=== PATIENT | male | born 2000 | race African-American/Black ===

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

== ENCOUNTER 2021-03-21 16:47 | Emergency (ER) | payer OTHER, SELFPAY ==
[2021-03-21 17:32] VITALS: BP 120/88; PULSE 82; RESP 16; TEMP 37.4; O2SAT 100
--- NOTE | 2021-03-21 18:18 | ED.ABDPAIN ---
HPI - Abdominal Pain General Chief Complaint: Abdominal Pain Stated Complaint: Stomach pain in lower right side and lower back. Time Seen by Provider: 03/21/21 18:18 Source: patient Mode of arrival: ambulatory Limitations: no limitations History of Present Illness HPI narrative: Zheng Esquivel is a 20 yo male with no PMH who comes with right lower quadrant pain and back pain for the last 10 days that is worse when he walks around especially at work when he is doing activities. He states that is been present fairly consistently, no fever, no nausea vomiting diarrhea, had normal bowel movement today Denies any chance of STD Related Data Allergies Allergy/AdvReac Type Severity Reaction Status Date / Time No Known Allergies Allergy Verified 09/19/20 18:04 Review of Systems Review of Systems: CONSTITUTIONAL: Denies fever, chills, sweats. EYES: Denies visual changes, redness, discharge. ENT: Denies rhinorrhea, congestion, sore throat, otalgia. CARDIOVASCULAR: Denies chest pain, palpitations, edema. RESPIRATORY: Denies dyspnea, wheezing, cough GASTROINTESTINAL: Has abdominal pain, no nausea, vomiting, diarrhea. GENITOURINARY: Denies dysuria, hematuria, abnormal discharge SKIN: Denies rash or itching. NEUROLOGIC: Denies numbness, or focal weakness. PSYCHIATRIC: Denies anxiety or depression. [facility] Past Medical History Medical History Patient denies significant medical history Surgical History Surgical History No significant past surgical history Family History Family History Father Alive and well Mother Alive and well Social History Social History Smoking status: Never smoker Tobacco type: cigarettes Second hand tobacco smoke exposure: No Alcohol intake: never Substance use: never Substance use type: does not use Gender identity (if verbalized by the patient): Male Sexual Orientation (if Verbalized by the Patient): Straight or Heterosexual Spiritual care concerns: No Comments At time of signature, I agree with nursing past medical, surgical, social and family history. There is no relevant family history pertinent to the presenting complaint. Exam Narrative: GENERAL: This is a well-nourished, well-developed patient, in moderate distress. HEAD: normocephalic, atraumatic. EYES: . Sclera clear/white. Vision is grossly intact. EARS: External ears normal, . Hearing grossly intact. NOSE: External nose normal without nasal discharge, nares without redness, no rhinorrhea. THROAT: Mucous membranes moist, NECK: Neck supple, non-tender CARDIOVASCULAR: Regular rate and rhythm without murmurs, gallops, or rubs. RESPIRATORY: Clear to auscultation. Breath sounds equal bilaterally. No wheezes, rales, or rhonchi. GASTROINTESTINAL: Abdomen soft, mild lower right-sided tenderness with no rebound- SKIN: warm, intact with no suspicious lesions or rash, good texture and turgor. NEURO: awake, alert, and oriented to person, place and time. There were no obvious focal neurologic abnormalities. Steady gait EXTREMITIES: Normal range of motion. BACK: Nontender without deformity right CVA tenderness Course Course Emergency Course: Patient comes with right lower quadrant pain and almost CVA back pain denies any STD or nausea vomiting diarrhea has had pain for the last 7 to 10 days UA done-2+ blood in urine Started on cephalexin over recommend a follow-up with a primary care physician if worsens or develops fever to go to the ER Vital Signs Vital signs: Vital Signs Temperature 99.4 F 03/21/21 17:32 Pulse Rate 82 03/21/21 17:32 Respiratory Rate 16 03/21/21 17:32 Blood Pressure 120/88 03/21/21 17:32 Pulse Oximetry 100 03/21/21 17:32 Temperature 99.4 F 03/21/21 17:32 Pulse R
--- NOTE | 2021-03-21 18:31 | PC.NURSE ---
1821 was in [place] to collect ua spec.
== END 2021-03-21 19:02 | disposition home or self-care (01) ==
PROVIDERS: Emergency Provider Nurse Practitioner
DX: R10.9 Unspecified abdominal pain (principal); R31.29 Other microscopic hematuria
CPT/HCPCS: 81003; 99213; G0463

== ENCOUNTER 2021-07-15 15:17 | Emergency (ER) | payer OTHER, SELFPAY ==
--- NOTE | ~2021-07-15 | XR_ITS ---
EXAMINATION: XR abdomen/kub 1V DATE: 07/15/2021 15:55 INDICATION: Right flank pain. TECHNIQUE: A supine view of the abdomen was obtained. COMPARISON: None. FINDINGS: There are no dilated loops of bowel. There is a moderate volume of stool in the colon. Ther e is a 3 mm calcification overlying right kidney. IMPRESSION: 1. Nonobstructive bowel gas pattern. 2. 3 mm calcification overlying right kidney that may be a kidney stone. Reviewed, dictated and finalized at location B.
[2021-07-15 15:19] VITALS: BP 133/69; PULSE 91; RESP 16; TEMP 36.3; O2SAT 100
--- NOTE | 2021-07-15 15:44 | ED.BACK ---
HPI - Back Pain/Injury General Chief Complaint: Back Pain/Injury Stated Complaint: Right kidney pain Time Seen by Provider: 07/15/21 15:19 Source: patient Mode of arrival: ambulatory Limitations: no limitations History of Present Illness HPI Narrative: -year-old male presents with complaint of intermittent right flank pain for 2 to 3 months. Just saw his PCP regarding this complaint 1 week ago and was given Flomax. States that no imaging was done but he was supposed to be contacted regarding an outpatient ultrasound or CT scan. Pain is not any worse today but he is getting concerned if this is really a kidney stone or another issue. He has no pain with urination, no frequency or urgency. Afebrile. He is sitting comfortably on exam table. All systems reviewed and negative except as noted above. Related Data Home Medications Medication Instructions Recorded Confirmed tamsulosin mg PO 07/15/21 Allergies Allergy/AdvReac Type Severity Reaction Status Date / Time No Known Allergies Allergy Verified 09/19/20 18:04 Review of Systems Review of Systems: CONSTITUTIONAL: Denies fever, chills, or sweats. EYES: Denies visual changes, redness, or discharge. ENT: Denies rhinorrhea, congestion, sore throat, or otalgia. CARDIOVASCULAR: Denies chest pain, palpitations, or edema. RESPIRATORY: Denies cough or dyspnea. GASTROINTESTINAL: Denies abdominal pain, nausea, vomiting, or diarrhea. GENITOURINARY: Denies dysuria or hematuria. Reports right flank pain. SKIN: Denies rash or itching. MUSCULOSKELETAL: Denies back pain, joint pain, or myalgia. NEUROLOGIC: Denies headache, numbness, or weakness. PSYCHIATRIC: Denies anxiety or depression. All other systems reviewed are negative, except as documented in HPI. [facility] Past Medical History Medical History Patient denies significant medical history Surgical History Surgical History No significant past surgical history Family History Family History Father Alive and well Mother Alive and well Social History Social History Smoking status: Never smoker Tobacco type: cigarettes Second hand tobacco smoke exposure: No Alcohol intake: never Substance use: never Substance use type: does not use Gender identity (if verbalized by the patient): Male Sexual Orientation (if Verbalized by the Patient): Straight or Heterosexual Spiritual care concerns: No Comments At time of signature, agree with nursing past medical, surgical, social and family history. There is no relevant family history pertinent to the presenting complaint. Exam Narrative: GENERAL: This is a well-nourished, well-developed patient, in no apparent distress. HEAD: normocephalic, atraumatic. EYES: PERRL. Sclera clear/white. Vision is grossly intact. EARS: External ears normal NOSE: External nose normal NECK: Neck supple, non-tender without lymphadenopathy, masses or thyromegaly. CARDIOVASCULAR: Regular rate and rhythm without murmurs, gallops, or rubs. RESPIRATORY: Clear to auscultation. Breath sounds equal bilaterally. No wheezes, rales, or rhonchi. GASTROINTESTINAL: Abdomen soft, non-tender, nondistended. Bowel sounds are active. No hepato-splenomegaly, or palpable masses. No guarding. SKIN: warm, Dry, intact with no suspicious lesions or rash, good texture and turgor. NEURO: awake, alert, and oriented to person, place and time. There were no obvious focal neurologic abnormalities. EXTREMITIES: Normal range of motion to all extremities. BACK: Nontender without deformity. No CVA tenderness. Course Course Level of Care: Express Care Visit Vital Signs Vital signs: Vital Signs Temperature 36.3 C L 07/15/21 15:19 Pulse Rate 91 07/15/21 15:19 Respiratory Rate 16 07/15/21
== END 2021-07-15 16:21 | disposition home or self-care (01) ==
PROVIDERS: Emergency Provider Nurse Practitioner Family
DX: N20.0 Calculus of kidney (principal)
CPT/HCPCS: 74018; 81003; 99213; G0463

== ENCOUNTER 2022-08-04 19:43 | Emergency (ER) | payer OTHER, SELFPAY ==
[2022-08-04 19:53] VITALS: BP 135/57; PULSE 77; RESP 16; TEMP 37.4; O2SAT 100
--- NOTE | 2022-08-04 20:04 | ED.SKABFB ---
HPI - Skin/Abscess/Foreign Bdy General Chief complaint: Skin/Abscess/Foreign Body Stated complaint: Abscess on right thigh Time Seen by Provider: 08/04/22 20:00 Source: patient and RN notes reviewed Mode of arrival: ambulatory Limitations: no limitations History of Present Illness HPI narrative: Patient presents today complaining of a bump to his right lateral thigh that he noticed this morning. Unsure if it has been worsening throughout the day. Reports pain only if he pushes down hard on it. Denies itching. He has tried no [id number] interventions prior to arrival. Related Data Allergies Allergy/AdvReac Type Severity Reaction Status Date / Time No Known Allergies Allergy Verified 09/19/20 18:04 Review of Systems Review of Systems: CONSTITUTIONAL: Denies body aches, fever, chills, or sweats. EYES: Denies visual changes, redness, or discharge. ENT: Denies rhinorrhea, congestion, sore throat, or otalgia. CARDIOVASCULAR: Denies chest pain, palpitations, or edema. RESPIRATORY: Denies cough or dyspnea. GASTROINTESTINAL: Denies abdominal pain, nausea, vomiting, or diarrhea. GENITOURINARY: Denies dysuria or hematuria. SKIN: + bump to right lateral thigh MUSCULOSKELETAL: Denies back pain, joint pain, or myalgia. NEUROLOGIC: Denies headache, numbness, tingling, or weakness. PSYCH: Denies depression or anxiety. [facility] Past Medical History Medical History Patient denies significant medical history Surgical History Surgical History No significant past surgical history Family History Family History Father Alive and well Mother Alive and well Social History Social History Smoking status: Never smoker Tobacco type: cigarettes Second hand tobacco smoke exposure: No Alcohol intake: never Substance use: never Substance use type: does not use Living arrangements: with family Occupation/Education: student Gender identity (if verbalized by the patient): Male Sexual Orientation (if Verbalized by the Patient): Straight or Heterosexual Spiritual care concerns: No Comments At time of signature, I have reviewed and agree with nursing past medical, surgical, social and family history unless otherwise noted. Please see nursing chart for further information. There is no relevant family history pertinent to the presenting complaint Exam Narrative: GENERAL: Well-appearing, well-nourished, and in no acute distress. HEAD: Normocephalic, atraumatic. EYES: EOMI. No redness or drainage. Conjunctivae normal. ENT: Mucous membranes pink and moist. NECK: Normal AROM. CHEST: No respiratory distress. EXTREMITIES: Normal range of motion. No edema. SKIN: Warm, dry, no rash. Capillary refill normal. Normal skin turgor. 3 x 2 cm area of erythema and firmness to the right lateral thigh with tiny scab in the center. No fluctuance or tenderness with palpation. No red streaking. No drainage. Consistent with insect bite. NEURO: No focal deficits. Alert and oriented x3. Gait steady. PSYCH: Normal affect. No signs of depression or anxiety. Course Course Level of Care: Express Care Visit Vital Signs Vital signs: Vital Signs Temperature 99.4 F 08/04/22 19:53 Pulse Rate 77 08/04/22 19:53 Respiratory Rate 16 08/04/22 19:53 Blood Pressure 135/57 L 08/04/22 19:53 Pulse Oximetry 100 08/04/22 19:53 Oxygen Delivery Room Air 08/04/22 19:53 Temperature 99.4 F 08/04/22 19:53 Pulse Rate 77 08/04/22 19:53 Respiratory Rate 16 08/04/22 19:53 Blood Pressure 135/57 L 08/04/22 19:53 Pulse Oximetry 100 08/04/22 19:53 Oxygen Delivery Room Air 08/04/22 19:53 Reviewed. Pt has been instructed to follow up with his PCP regarding hi
== END 2022-08-04 20:11 | disposition home or self-care (01) ==
PROVIDERS: Emergency Provider Nurse Practitioner
DX: S70.361A Insect bite (nonvenomous), right thigh, initial encounter (principal); W57.XXXA Bitten or stung by nonvenomous insect and other nonvenomous arthropods, initial encounter
CPT/HCPCS: 99213; G0463

== ENCOUNTER 2023-04-01 14:07 | Emergency (ER) | payer OTHER, SELFPAY ==
--- NOTE | ~2023-04-01 | XR_ITS ---
EXAMINATION: XR chest 2V DATE: 04/01/2023 14:54 INDICATION: Abnormal lung sounds TECHNIQUE: Frontal and lateral views of the chest are obtained COMPARISON: None available FINDINGS: The lungs are free of acute opacities. No pleural effusion or pneumothorax. The cardiomedia stinal silhouette is normal. The visualized bones and soft tissues are unremarkable. IMPRESSION: 1. No acute cardiopulmonary abnormality. Reviewed, dictated and finalized at location F. N[employer] DEVELOPMENT [employer]OCIATE
--- NOTE | 2023-04-01 14:19 | ED.URI ---
HPI - URI/Sore Throat General Chief Complaint: Upper Respiratory Infection Stated Complaint: Sinus/Sore Throat Time Seen by Provider: 04/01/23 14:43 Source: patient and RN notes reviewed Mode of arrival: ambulatory Limitations: no limitations History of Present Illness HPI Narrative: 22-year-old male presents with concern for 3-4 day history of sore throat, sinus congestion, painful cough with upper chest congestion. Reports he got a fever this morning. He reports he has been taking Mucinex. Reports he has a productive cough. MD elicited complaint: cough and sore throat Related Data Allergies Allergy/AdvReac Type Severity Reaction Status Date / Time No Known Allergies Allergy Verified 04/01/23 14:27 Review of Systems Review of Systems: CONSTITUTIONAL: Reports malaise. Chills, sweats, or fever. EYES: Denies visual changes, redness, or discharge. ENT: Reports rhinorrhea, congestion, and sore throat. CARDIOVASCULAR: Denies chest pain, palpitations, or edema. RESPIRATORY: Reports productive painful cough. Denies dyspnea. GASTROINTESTINAL: Denies abdominal pain, nausea, vomiting, diarrhea SKIN: Denies rash or itching. MUSCULOSKELETAL: Denies myalgia. NEUROLOGIC: Reports headache. All systems reviewed & are unremarkable except as noted in HPI and below PMFSH Past Medical History Medical History Patient denies significant medical history Surgical History Surgical History No significant past surgical history Family History Family History Father Alive and well Mother Alive and well Social History Social History Smoking status: Never smoker Tobacco type: cigarettes Second hand tobacco smoke exposure: No Alcohol intake: never Substance use: never Substance use type: does not use Living arrangements: with family Occupation/Education: student Gender identity (if verbalized by the patient): Male Sexual Orientation (if Verbalized by the Patient): Straight or Heterosexual Spiritual care concerns: No Comments At time of signature, agree with nursing past medical, surgical, social and family history. There is no relevant family history pertinent to the presenting complaint Exam Narrative: GENERAL: Well-appearing, well-nourished, and in no acute distress. HEAD: Normocephalic EYES: PERRLA, conjunctivae clear ENT: Nares clear, turbinates edematous and erythematous. Mucous membranes moist. TM pearly padron with dull light reflex bilaterally; no tragal tenderness. Oropharynx not erythematous without lesions. Tonsils not enlarged and without exudate, no drooling, no hoarseness, no trismus, uvula midline. NECK: Supple. No lymphadenopathy CHEST: Scattered rhonchi, otherwise clear to auscultation, breath sounds equal. No wheezing, rales, or stridor. No respiratory distress, speaks in full sentences. HEART: Regular rate and rhythm. No murmur heard. SKIN: Warm, dry, no rash. NEURO: Alert and oriented x3. PSYCH: Normal mood and affect Course Course Emergency Course: Patient is aware of diagnosis, understands and agrees to treatment plan. Anticipatory guidance given. Patient agrees to follow-up as directed and is aware of reasons to seek care at the emergency department. Portions of this record may have been created with voice recognition software Level of Care: Express Care Visit Vital Signs Vital signs: Reviewed. MDM - URI/Sore Throat MDM Narrative Medical decision making narrative: Differential diagnosis considered: Gutiérrez virus, strep pharyngitis, allergic rhinitis, upper respiratory tract infection, sinusitis, rhinosinusitis, nasopharyngitis. viral pharyngitis, otitis media, otitis externa, pneumonia, bronchitis, viral cough syndrome, viral syndrome,
[2023-04-01 14:24] VITALS: BP 154/81; PULSE 84; RESP 14; TEMP 37.4; O2SAT 99
== END 2023-04-01 15:20 | disposition home or self-care (01) ==
PROVIDERS: Emergency Provider Nurse Practitioner
DX: J06.9 Acute upper respiratory infection, unspecified (principal)
CPT/HCPCS: 71046; 87081; 87880; 99213; G0463

== ENCOUNTER 2023-07-11 11:04 | Emergency (ER) | payer OTHER, SELFPAY ==
[2023-07-11 11:46] VITALS: BP 123/68; PULSE 90; RESP 16; TEMP 36.8; O2SAT 100
--- NOTE | 2023-07-11 11:57 | ED.SOB ---
HPI - SOB/Dyspnea General Chief Complaint: Shortness of Breath/Dyspnea Stated Complaint: SOB Time Seen by Provider: 07/11/23 11:36 Source: patient and RN notes reviewed Mode of arrival: ambulatory Limitations: no limitations History of Present Illness HPI Narrative: Patient presents today complaining of intermittent shortness of breath with exertion x4 days. Symptoms began after inhaling some bleach fumes while cleaning at home. Denies any current cough, congestion, rhinorrhea, fever, or any additional symptoms. No history of asthma. He is a nonsmoker. Related Data Home Medications Medication Instructions Recorded Confirmed No Home Medications 07/11/23 07/11/23 Allergies Allergy/AdvReac Type Severity Reaction Status Date / Time No Known Allergies Allergy Verified 07/11/23 11:07 Review of Systems Review of Systems: CONSTITUTIONAL: Denies body aches, fever, chills, or sweats. EYES: Denies visual changes, redness, or discharge. ENT: Denies rhinorrhea, congestion, sore throat, or otalgia. CARDIOVASCULAR: Denies chest pain, palpitations, or edema. RESPIRATORY: Denies cough.+ intermittent shortness of breath with exertion GASTROINTESTINAL: Denies abdominal pain, nausea, vomiting, or diarrhea. GENITOURINARY: Denies dysuria or hematuria. SKIN: Denies rash, itching, or wounds. MUSCULOSKELETAL: Denies back pain, joint pain, or myalgia. NEUROLOGIC: Denies headache, numbness, tingling, or weakness. PSYCH: Denies depression or anxiety. [facility] Past Medical History Medical History Patient denies significant medical history Surgical History Surgical History No significant past surgical history Family History Family History Father Alive and well Mother Alive and well Social History Social History Smoking status: Never smoker Tobacco type: cigarettes Second hand tobacco smoke exposure: No Alcohol intake: never Substance use: never Substance use type: does not use Living arrangements: with family Occupation/Education: student Gender identity (if verbalized by the patient): Male Sexual Orientation (if Verbalized by the Patient): Straight or Heterosexual Spiritual care concerns: No Comments At time of signature, I have reviewed and agree with nursing past medical, surgical, social and family history unless otherwise noted. Please see nursing chart for further information. There is no relevant family history pertinent to the presenting complaint Exam Narrative: GENERAL: Well-appearing, well-nourished, and in no acute distress. HEAD: Normocephalic, atraumatic. EYES: EOMI. No redness or drainage. Conjunctivae normal. ENT: Mucous membranes pink and moist. Nares clear. No rhinorrhea. TMs normal bilaterally. Throat normal. Uvula midline. NECK: Normal AROM. Supple. No lymphadenopathy. CHEST: No respiratory distress. Clear to auscultation. HEART: Regular rate and rhythm. No murmur appreciated. EXTREMITIES: Normal range of motion. No edema. SKIN: Warm, dry, no rash. Capillary refill normal. Normal skin turgor. NEURO: No focal deficits. Alert and oriented x3. Gait steady. PSYCH: Normal affect. No signs of depression or anxiety. Course Course Level of Care: Express Care Visit Vital Signs Vital signs: Vital Signs Temperature 98.2 F 07/11/23 11:46 Pulse Rate 90 07/11/23 11:46 Respiratory Rate 16 07/11/23 11:46 Blood Pressure 123/68 07/11/23 11:46 Pulse Oximetry 100 07/11/23 11:46 Oxygen Delivery Room Air 07/11/23 11:46 Temperature 98.2 F 07/11/23 11:46 Pulse Rate 90 07/11/23 11:46 Respiratory Rate 16 07/11/23 11:46 Blood Pressure 123/68 07/11/23 11:46 Pulse Oximetry 100 07/11/23 11:46 Oxygen
== END 2023-07-11 12:08 | disposition home or self-care (01) ==
PROVIDERS: Emergency Provider Nurse Practitioner
DX: T54.3X1A Toxic effect of corrosive alkalis and alkali-like substances, accidental (unintentional), initial encounter (principal)
CPT/HCPCS: 99211; G0463

== ENCOUNTER 2025-02-12 00:07 | Emergency (ER) | payer OTHER, SELFPAY ==
[2025-02-12 00:16] VITALS: BP 128/75; PULSE 64; RESP 18; TEMP 36.9; O2SAT 100
--- NOTE | 2025-02-12 01:25 | ED.DENTAL ---
HPI - Dental/Oral General Chief complaint: Dental/Oral Stated complaint: dental pain Time Seen by Provider: 02/12/25 01:03 History of Present Illness HPI Narrative: Patient is a 24-year-old male who presents to the ER with left lower jaw pain. He reports his symptoms started earlier today. Patient reports he has a cracked molar on tooth # 17. He reports he has had an infection below this tooth before but it has not been ?for a while. Patient denies any recent antibiotic use. He denies any other medical history relevant to this ER visit. Patient denies any sore throat, difficulty swallowing, mastoid tenderness, or recent fevers. Related Data Allergies Allergy/AdvReac Type Severity Reaction Status Date / Time No Known Allergies Allergy Verified 02/12/25 00:08 Review of Systems Review of Systems: All systems reviewed & are unremarkable except as noted in HPI and below PMFSH Past Medical History Medical History Patient denies significant medical history Surgical History Surgical History No significant past surgical history Family History Family History Father Alive and well Mother Alive and well Social History Social History Smoking status: Never smoker Tobacco type: cigarettes Second hand tobacco smoke exposure: No Alcohol intake: never Substance use: never Substance use type: does not use Living arrangements: with family Occupation/Education: student Gender identity (if verbalized by the patient): Male Sexual Orientation (if Verbalized by the Patient): Straight or Heterosexual Spiritual care concerns: No Exam Narrative: GENERAL: Well appearing, well-nourished, non-toxic, in no acute distress. HEAD: Normocephalic, atraumatic. #17 cracked, decay tooth, no visible infection NECK: Supple. No adenopathy, no palpable masses RESPIRATORY: Airway patent, respirations nonlabored. Clear to auscultation bilaterally, no rales, rhonchi, wheezing. CARDIOVASCULAR: Regular rate and rhythm without murmurs, rubs, or gallops. Peripheral pulses 2+ and equal bilaterally. ABDOMINAL: Soft, nontender, nondistended, no hepatosplenomegaly. Normoactive BS. MUSCULOSKELETAL: Moves all extremities. Strength/ROM intact without gross deformities. SKIN: Warm, dry, normal color. No rashes. NEURO: A&O X3. Speech clear. Cranial nerves II-XII intact. No ataxic movements. PSYCHIATRIC: Appropriate mood and affect. Normal interaction. Course Vital Signs Vital signs: Vital Signs Temperature 36.9 C 02/12/25 00:16 Pulse Rate 64 02/12/25 00:16 Respiratory Rate 18 02/12/25 00:16 Blood Pressure 128/75 02/12/25 00:16 Pulse Oximetry 100 02/12/25 00:16 Oxygen Delivery Room Air 02/12/25 00:16 Temperature 36.9 C 02/12/25 00:16 Pulse Rate 64 02/12/25 00:16 Respiratory Rate 18 02/12/25 00:16 Blood Pressure 128/75 02/12/25 00:16 Pulse Oximetry 100 02/12/25 00:16 Oxygen Delivery Room Air 02/12/25 00:16 MDM - Dental/Oral MDM Narrative Medical decision making narrative: Patient is a 24-year-old male who presents to the ER with left lower jaw pain. He reports his symptoms started earlier today. Patient reports he has a cracked molar on tooth # 17. He reports he has had an infection below this tooth before but it has not been ?for a while. Patient denies any recent antibiotic use. He denies any other medical history relevant to this ER visit. Patient denies any sore throat, difficulty swallowing, mastoid tenderness, or recent fevers. Patient Education/Shared MDM: Patient endorses improvement of symptoms following medication administration. He will be given his 1st dose of oral antibiotics here in the ER. Patient strongly advised to maintain hydration status upon discharge and follow-up with his dentist as soon as possible. He will be discharged home with a prescription for Augmentin, viscous lidocaine, and ibuprofen 800 mg. Strict return precautions provided. Patient verbalized understanding and is in agreement with plan. Vital signs stable at time of discharge. All questions answered. Differential Diagnosis Differential diagnosis: Likely dental caries, toothache, dental abscess and fracture of tooth Discharge Plan Discharge Clinical Impression: Dental abscess, Toothache, Dental caries Patient Disposition: Home Condition: Stable Instructions: Antibiotic Form, Dental Abscess (ED) Additional Instructions: Please return to the ER with any worsening symptoms. Follow-up with your dentist as soon as possible. You may take Tylenol and/or ibuprofen for pain control. Please swish with viscous lidocaine as needed. Complete your full dose of antibiotics. Patient Language: Micronesian Prescriptions: New amoxicillin-pot clavulanate 875-125 mg tablet 1 tablet PO Q12H Qty: 20 0RF lidocaine HCl [Lidocaine Viscous] 2 % solution 1 applic mucous membrane QID PRN (Reason: pain) Qty: 300 0RF ibuprofen 800 mg tablet 800 mg PO TID PRN (Reason: pain) Qty: 30 0RF No Action albuterol sulfate [ProAir HFA] 90 mcg/actuation HFA aerosol inhaler 2 puff INHALATION Q4-6H PRN (Reason: shortness of breath or wheezing) Qty: 18 0RF Follow-up/Referrals: PHYSICIAN,PRECISION LENS GRINDER APPRENTICE [Primary Care Provider, Internal Medicine] Deejay Painting MD [Physician, Family Practice] Referral Note: primary care provider Stand Alone Forms: Work/School Release IP Time of Disposition: 01:34
[2025-02-12] MEDS: LIDOCAINE 2% VISC SOLN 15 ML UDC PO (01:44)
[2025-02-12] MEDS: KETOROLAC (*BKC) 60 MG/2 ML VIAL IM (01:45)
[2025-02-12] MEDS: HYDROcodone/acetaminophen (*CRX) 5-325 MG TABLET 1 TAB PO (01:45)
--- OUTSIDE RECORDS SUMMARY | 2025-02-12 02:03 | XMS_ITS | Clinical Summary ---
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 Gender Identity Not on file Sexual Orientation Not on file Plan of Treatment Health Maintenance Due Date Last Done Comments Hepatitis C Virus (HCV) Screening 2001 Influenza Immunization (#1) 11/24/202412/25, 12/21/2014, 05/01/2011 SARS-COV-2 Immunization ( season) 2024 Respiratory Syncytial Virus (RSV) Immunization (Adult) (1 - 1-dose 75+ series) 2076 Hepatitis B Immunization Completed 003, 2001, 2001 Pneumococcal Immunization Combined Aged Out 04/18/2002 No longer eligible based on patient's age to complete this topic Polio (IPV) Immunization Discontinued 007, 04/18/2002, 2001, Additional history exists Measles Mumps Rubella (MMR) Immunization Discontinued 12/25/2006, 08/10/2006 Varicella Immunization Completed 10/17/2007, 2006 DTaP/Tdap/Td Immunization Discontinued 2012, 10/30/2012, 07/12/2007, Additional history exists TdaP Immunization Completed 11/09/2012, 10/30/2012 Human Papillomavirus (HPV) Immunization Completed 11/26/2013, 06/17/2013, 10/30/2012 Hepatitis A Immunization Discontinued 018, 10/17/2007, 07/12/2007 Meningococcal Immunization (ACWY) Completed 10/30/2017, 10/30/2012 Meningococcal B Immunization Completed 01/02/2018, 10/30/2017 Rotavirus Immunization Aged Out No lo nger eligible based on patient's age to complete this topic
--- OUTSIDE RECORDS SUMMARY | 2025-02-12 02:03 | XMS_ITS | Clinical Summary ---
Author Organization [facility] Address [address] [place] [address] Care Team Providers Care Production Supply Equipment Tender Name Role Phone Odilon Lombardo MD Primary Care Provider [phone] Source Comments [facility],non-owned Affiliates and Associated Physician Practices is amultiple site organization consisting of ambulatory clinics and hospital sitesin [place], [place], [place] and [place]. This disclosure is being madepursuant to the Care Everywhere program and may not contain all information available regarding this patient. 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 Gender Identity Not on file Sexual Orientation Not on file Plan of Treatment Health Maintenance Due Date Last Done Comments HIV SCREENING 2016 HPV VACCINE (1 - Male 3-dose series) 2016 MENINGOCOCCAL (Group B) VACC INE SHARED DECISION-MAKING (1 of 2 - Standard) 2017 HEPATITIS C SCREENING 06/28/2019 DTAP/TDAP/TD VACCINES (1 - Tdap) 2020 HEPATITIS B VACCINE (1 of 3 - 19+ 3-dose series) 2020 DEPRESSION SCREENING 03/26/2024 COVID-19 VACCINE (1 - 2024-2 6 season) 2024 INFLUENZA VACCINE (#1) 2024 ZOSTER VACCINE (1 of 2) 07/03/2051 HIB VACCINE Aged Out No longer eligi ble based on patient's age to complete this topic MENINGOCOCCAL GROUPS A/C/Y/W VACCINE Aged Out No longer eligible b ased on patient's age to complete this topic PNEUMOCOCCAL VACCINE Aged Out No long er eligible based on patient's age to complete this topic Care Teams Production Supply Equipment Tender Relationship Specialty Start Date End Date Odilon Lombardo MD [address] [place] [address] PCP - General 05/10/11
--- OUTSIDE RECORDS SUMMARY | 2025-02-12 02:03 | XMS_ITS | Clinical Summary ---
Author Organization [facility] Address [address] [place] [id number] Care Team Providers Care Cinder Pit Crane Operator Name Role Phone Katharine Jules MD Primary Care Pro vider Allergies No known active allergies Medications tamsulosin (FLOMAX) 0.4 mg extended release capsuleIndicati ons:Flank pain Take 1 capsule (0.4 mg total) by mouth daily 30 capsule 07/05/2021 Active Active Problems Problem Noted Date Diagnosed Date Annual physical exam 04/29/2020 Assessment & Plan (04/29/2020 8:45 AM MANAGER HARDWARE): Never smoker: denies Alcohol use: denies Sexual transmitted infection testing: not sexually active BP wnl PHQ Screening PHQ-2 Total Score (If total score is 3 or more points, staff should administer the PHQ-9): 0 PHQ-9 Total Score: 0 Body mass index is 24.82 kg/m . Discussed diet and exercise Feels safe at home Discussed skin cancer prevention and screening Advise menigococcal vaccine #2 at [facility] Advised to check lipids, order placed Immunizations Immunization Administration Dates Next Due DTaP 07/12/2007, 7,04/18/2002,11/01,2001 DTaP / IPV 08/10/2006, 3,2001,09/02 DTaP, Unspecified 07/12/2007, 7,04/18/2002,11/01,2001 HPV, Quadrivalent 11/26/2013,06/17/2013,10/31/19 13 HPV9 11/26/2013,06/17/2013,10/30/2012 Hep A, Pediatric 10/30/2017,10/17/2007, 8 Hep B / HiB 04/18/2002,2001,2001 Hep B, Unspecified 04/18/2002,2001, 002 Hib (PRP-OMP) 04/18/2002,2001,2001 IPV 08/10/2006, 3,2001,09/02 Influenza, Quadrivalent, Spl it, Preservative Free, Intramuscular 01/20/2016,12/21/2014 Influenza, Split 02/08/2010,04/02/2008 Influenza, Trivalent, Preser vative Free, Intramuscular 05/01/2011 Influenza, Unspecified 06/20/2021(Deferr ed: Patient decision),01/20/2016,12/21/2014,2011,02/08/2010,04/02/2008 MMR 12/25/2006,08/10/2006 MMRV 12/25/2006,08/10/2006 Meningococcal B, OMV (Bexsero) 01/02/2018,2017 Meningococcal Conjugate (Menveo) 10/30/2017 Meningococcal MCV4P (Menactra) 10/30/2012 Pneumococcal Conjugate 7-Valent 04/18/2002 Pneumococcal Conjugate PCV 13 04/18/2002 Tdap 11/09/2012 Varicella 10/17/2007,12/25/2006 Family History Medical History Relation Name Comments No Known Problems Father No Known Problems Mother Relation Name Status Comments Father Alive Mother Alive Social History Tobacco Use Types Packs/Day Years Used Date Smoking Tobacco: Never Smokeless Tobacco: Never Alcohol Use Standard Drinks/Week Comments Never 0 (1 standard drink = 0.6 oz pur e alcohol) AUDIT-C Answer Date Recorded Q1: How often do you have a drink containing alc ohol? 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 Gender Identity Not on file Sexual Orientation Not on file Last Filed Vital Signs Vital Sign Reading Time Taken Comments Blood Pressure 112/70 07/05/2021 9:54 AM CDT Pulse 74 07/05/2021 9:54 AM CDT Temperature 36.5 C (97.7 F) 07/05/2021 9:54 AM CDT Respiratory Rate 18 07/05/2021 9:54 AM CDT Oxygen Saturation 99% 07/05/2021 9:54 AM CDT Inhaled Oxygen Concentration - - Weight 88.3 kg (194 lb 9.6 oz) 07/05/2021 9:54 A M CDT Height 182.9 cm (6') 07/05/2021 9:54 AM CDT Body Mass Index 26.39 07/05/2021 9:54 AM CDT Plan of Treatment Not on file Insurance [facility] Care Teams Cinder Pit Crane Operator Relationship Specialty Start Date End Date Katharine Jules MD PCP - General Family Medicine 04/29/20
--- OUTSIDE RECORDS SUMMARY | 2025-02-12 02:03 | XMS_ITS | Clinical Summary ---
Author Organization [facility] Address [address] [place] [id number] Care Team Providers Care Vocal Teacher Name Role Phone David Greenfield DO Primary Care Provider Allergies No known active allergies Medications No known medications Immunizations Immunization Administration Dates Next Due Dtap (Generic) 07/12/2007, 7,04/18/2002,2001 ,2001 HPV GARDASIL 9-VALENT 11/26/2013,06/17/2013,09/2012 Hepatitis A Vaccine - 2 Dose 07/12/2007 Hepatitis B 04/18/2002,2001,2001 Hib Vaccine, Prp-Omp 04/18/2002,2001,09/02 Influenza Adult (Generic) 01/20/2016,,05/01/2011,02/08/2010 ,04/02/2008 MMR (Generic) 12/25/2006,08/10/2006 Meningococcal Vac A,C,Y,W-135 Sc 10/30/2012 Pneumococcal (Prevnar 13) 04/18/2002 Polio Ipv (Generic) 08/10/2006,04/18/2002,2001,2001 Tdap (Generic) 11/09/2012 Varicella Vaccine 10/17/2007,12/25/2006 Social History Tobacco Use Types Packs/Day Years Used Date Smoking Tobacco: Never Smokeless Tobacco: Never Sex and Gender Information Value Date Recorded Sex Assigned at Not on file Legal Sex Male 7:44 PM CDT Gender Identity Not on file Sexual Orientation Not on file Last Filed Vital Signs Vital Sign Reading Time Taken Comments Blood Pressure 113/78 05/19/2019 8:10 AM PROFILER HAND Pulse 76 05/19/2019 8:10 AM PROFILER HAND Temperature 37 C (98.6 F) 05/19/2019 8:10 AM PROFILER HAND Respiratory Rate 12 05/19/2019 8:10 AM PROFILER HAND Oxygen Saturation 97% 05/19/2019 8:10 AM PROFILER HAND Inhaled Oxygen Concentration - - Weight 78.5 kg (173 lb) 05/19/2019 8:10 AM PROFILER HAND Height 182.9 cm (6') 05/19/2019 8:10 AM PROFILER HAND Body Mass Index 23.46 05/19/2019 8:10 AM PROFILER HAND Plan of Treatment Health Maintenance Due Date Last Done Comments Hepatitis A Vaccines (2 of 2 - 2-dose series) 01/11/2008 07/12/2007 Meningococcal B Vaccine (1 of 2 - Standard) 2017 Hepatitis C 07/03/2019 Annual Physical 05/19/2020 05/19/2019 DTaP, Tdap and Td Vaccines (7 - Td or Tdap) 11/09/2022 11/09/2012, 07/12/2007, 08/10/2006, Additional history exists PHQ-2 (Physician Crowell) 03/26/2024 COVID-19 Vaccine ( season) 2024 Influenza Adult (#1) 2024 01/20/2016, 12/21/2014, 05/01/2011, Additional history exists Hepatitis B Vaccines Completed 04/18/2002, 2001, 2001 Pneumococcal Vaccine: Pediatrics (0 to 5 Years) and At-Risk Patients (6 to 49 Years) Aged Out 04/18/2002 No longer eligible based on patient's age to complete this topic Meningococcal Vaccine Aged Out 10/30/2012 No benita dick eligible based on patient's age to complete this topic HPV Vaccines Completed 11/26/2013, 05/25, 10/30/2012 RSV Immunizations Under 20 Months Aged Out No longer eligible based on patient's age to complete this topic Insurance [employer] Care Teams Vocal Teacher Relationship Specialty Start Date End Date David Greenfield [place] [address] PCP - General FAMILY PRACTICE 07/11/23
== END 2025-02-12 01:53 | disposition home or self-care (01) ==
PROVIDERS: Emergency Provider Registered Nurse
DX: K04.7 Periapical abscess without sinus (principal); K02.9 Dental caries, unspecified
CPT/HCPCS: 96372; 99283; A9270; J1885